=== PATIENT | female | born 1935 | race Caucasian/White ===

== ENCOUNTER 2022-10-26 11:59 | Outpatient (CLI) | payer BC ==
[~2022-10-26] VITALS: Ht 154.9 cm; Wt 74.8 kg
[2022-10-26 13:00] LABS: BASOPHILS # (AUTO) 0.1 X10'3 (0-0.2); EOSINOPHILS # (AUTO) 0.1 X10'3 (0-0.9); EOSINOPHILS % (AUTO) 2.1 % (0-6); HEMATOCRIT 36.5 % (35.0-45.0); LYMPHOCYTES # (AUTO) 1.5 X10'3 (1.1-4.8); LYMPHOCYTES % (AUTO) 22.4 % (21-51); MEAN CORPUSCULAR HEMOGLOBIN 29.2 PG (27.0-31.0); MEAN CORPUSCULAR HGB CONC 32.9 g/dL (33.0-36.5); MEAN PLATELET VOLUME 8.8 FL (7.4-10.4); MONOCYTES # (AUTO) 0.5 X10'3 (0-0.9); MONOCYTES % (AUTO) 7.3 % (2-12); NEUTROPHILS # (AUTO) 4.6 X10'3 (1.8-7.7); NEUTROPHILS % (AUTO) 67.2 % (42-75); PLATELET COUNT 259 X10'3 (140-440); WHITE BLOOD COUNT 6.9 X10'3 (4.5-11.0)
[2022-10-26 13:06] LABS: APTT 31 SECONDS (22-32)
[2022-10-26 13:13] LABS: ALANINE AMINOTRANSFERASE 18 U/L (12-78); ALBUMIN 3.5 G/DL (3.4-5.0); ALBUMIN/GLOBULIN RATIO 0.9 (1.1-1.5); ALKALINE PHOSPHATASE 96 IU/L (46-116); ANION GAP 7 (8-16); ASPARTATE AMINO TRANSFERASE 24 U/L (10-37); BILIRUBIN,TOTAL 0.3 MG/DL (0.1-1.0); BLOOD UREA NITROGEN 30 MG/DL (7-18); BUN/CREATININE RATIO 24.4 (6.6-38.0); CALCIUM 8.8 MG/DL (8.5-10.1); CHLORIDE 100 MMOL/L (99-107); CREATININE 1.23 MG/DL (0.40-0.90); GLUCOSE 169 MG/DL (70-104); POTASSIUM 3.8 MMOL/L (3.5-5.1); SODIUM 139 MMOL/L (135-145); TOTAL CARBON DIOXIDE 32.5 MMOL/L (24-32); TOTAL PROTEIN 7.3 G/DL (6.4-8.2); eGFR 41 ML/MIN
[2022-10-26] MEDS ORDERED: IODIXANOL 320 MG/ML INFUS..BTL 100ML IV ONE (13:18)
[2022-10-26] MEDS ORDERED: albuterol 2.5 MG/3 ML nebule NEB PRN (14:50)
[2022-10-26 14:51] LABS: ABG HCO3 27.8 mmol/L (22.0-26.0); ABG OXYGEN SATURATION 93.5 % (94-97); ABG PCO2 (T) 43.6 mmHg (32.0-45.0); ABG PO2 (T) 69.2 mmHg (75.0-100.0); ALLEN'S TEST POSITIVE; FCOHb 0.5 % (0.0-3.9); FMetHb 0.2 % (0.0-1.5); FO2Hb 92.8 % (94-97)
== END 2022-10-26 23:59 | disposition home or self-care (01) ==
LOC: RAD 11:59
PROVIDERS: ATTEND Internal Medicine Cardiovascular Disease
DX: R94.2 Abnormal results of pulmonary function studies (principal); I35.0 Nonrheumatic aortic (valve) stenosis; R06.02 Shortness of breath; I65.29 Occlusion and stenosis of unspecified carotid artery; I70.0 Atherosclerosis of aorta; R91.1 Solitary pulmonary nodule; K76.89 Other specified diseases of liver; K57.30 Diverticulosis of large intestine without perforation or abscess without bleeding; I70.202 Unspecified atherosclerosis of native arteries of extremities, left leg; I51.7 Cardiomegaly; Z98.890 Other specified postprocedural states
CPT/HCPCS: 36415; 36600; 71046; 71275; 74174; 80053; 82803; 85018; 85025; 85610; 85730; 94060; 94727; 94729; 94760; J3490; Q9967

== ENCOUNTER 2022-11-22 08:28 | Inpatient (IN) | payer BC ==
[2022-11-19 15:53] LABS: BASOPHILS # (AUTO) 0.1 X10'3 (0-0.2); BASOPHILS % (AUTO) 0.9 % (0-1); EOSINOPHILS # (AUTO) 0.1 X10'3 (0-0.9); EOSINOPHILS % (AUTO) 0.7 % (0-6); LYMPHOCYTES # (AUTO) 1.2 X10'3 (1.1-4.8); LYMPHOCYTES % (AUTO) 16.7 % (21-51); MEAN CORPUSCULAR HEMOGLOBIN 29.9 PG (27.0-31.0); MEAN CORPUSCULAR HGB CONC 33.8 g/dL (33.0-36.5); MEAN CORPUSCULAR VOLUME 88.4 FL (78-98); MEAN PLATELET VOLUME 9.3 FL (7.4-10.4); MONOCYTES # (AUTO) 0.5 X10'3 (0-0.9); MONOCYTES % (AUTO) 6.7 % (2-12); NEUTROPHILS # (AUTO) 5.3 X10'3 (1.8-7.7); PRE OP HEMATOCRIT 38.7 % (35.0-45.0); PRE OP HEMOGLOBIN 13.1 g/dL (12.0-16.0); PRE OP PLATELET COUNT 173 X10'3 (140-440); RED BLOOD COUNT 4.37 X10'6 (4.20-5.60)
[2022-11-19 15:54] LABS: CLARITY,URINE CLOUDY (Clear); COLOR,URINE YELLOW (Yellow); GLUCOSE, URINE NEGATIVE (Neg); KETONES,URINE NEGATIVE (Neg); LEUKOCYTE ESTERASE ,URINE SMALL (Neg); NITRITES, URINE POSITIVE (Neg); OCCULT BLOOD,URINE SMALL (Neg); PROTEIN,URINE NEGATIVE (Neg); UROBILINOGEN,URINE 0.2 E.U/dL (0.2-1.0)
[2022-11-19 15:55] LABS: UA COLLECTION TYPE CLN CATCH MIDSTREAM
[2022-11-19 15:58] LABS: PRE OP INR 1.2 INR
[2022-11-19 16:00] LABS: ALKALINE PHOSPHATASE 103 IU/L (46-116); BLOOD UREA NITROGEN 23 MG/DL (7-18); BUN/CREATININE RATIO 18.3 (6.6-38.0); CALCIUM 9.7 MG/DL (8.5-10.1); CHLORIDE 96 MMOL/L (99-107); CREATININE 1.26 MG/DL (0.40-0.90); PRE OP ALT 22 U/L (30-65); PRE OP ANION GAP 9 (8-16); PRE OP AST 24 U/L (10-37); PRE OP BILIRUB, TOTAL 0.6 MG/DL (0.0-1.0); PRE OP GLUCOSE 116 MG/DL (70-104); PRE OP POTASSIUM 3.7 MMOL/L (3.4-5.1); PRE OP SODIUM 136 MMOL/L (135-145); TOTAL CARBON DIOXIDE 30.8 MMOL/L (24-32); eGFR 40 ML/MIN
[2022-11-19 16:17] LABS: SQUAMOUS EPITHELIAL CELL,UR MANY /LPF (FEW)
[2022-11-19 16:18] LABS: BACTERIA,URINE 3+ /HPF (Neg); HYALINE CASTS 0-3 /LPF (NEGATIVE); WBC,URINE 30-50 /HPF (0-4)
[2022-11-19 16:19] LABS: MUCUS STRANDS FEW /LPF (Neg); RBC,URINE 0-2 /HPF (0-2)
[2022-11-22] VITALS (22 sets, daily range): BP systolic 98–155; BP diastolic 50–96
[~2022-11-22] VITALS: Ht 160 cm; Wt 79.6 kg
[~2022-11-22 08:28] MED LIST: APIX5TAB3 PO; ATOR10TA70 PO; BENA1TAB88 PO; BENA40TA90 PO; ESOM40CA54 PO; FELO10TA46 PO; FURO20TA4 PO; LIDOcaine 1%/PF 5ML 10 MG/ML VIAL ONE; POTA-192 PO; aspirin 325mg tablet PO ONE; ceFAZolin inj. 2,000 MG in dextrose 5%-water 100 ML IV ONE; famotidine 20mg tablet PO ONE; nitroPRUSSIDE (NIPRIDE) (200MCG/ML) 100ML Drip IV SCH; ondansetron/PF 4mg/2ml inj IV PRN; phenylephrine inj 50 MG in normal saline 250ml IV solN IV SCH; protamine sulfate 10mg/ml inj. ONE; ringers solution, lacted 1,000 ML IV SCH; vancomycin 1,500 MG in NS 300ml IV soln IV ONE
[2022-11-22] MEDS ORDERED: ondansetron/PF 4mg/2ml inj IV PRN ×2 (10:15→14:05)
[2022-11-22] MEDS ORDERED: proCHLORperazine 10 MG/2 ml inj IV PRN ×2 (10:15→14:05)
[2022-11-22] MEDS ORDERED: morphine 2 MG/ML inj. syringe IV PRN (10:15)
[2022-11-22] MEDS ORDERED: morphine 4 MG/ML inj SYRINge IV PRN (10:15)
[2022-11-22] MEDS ORDERED: meperidine/PF 25mg/ml syringe IV PRN ×2 (10:15)
[2022-11-22] MEDS ORDERED: ringers solution, lacted 1,000 ML IV SCH (10:15)
[2022-11-22] MEDS ORDERED: heparin 1,000 UNITS/NS 500ml 1,500 ML ONE (12:25)
[2022-11-22] MEDS ORDERED: iohexol 350 MG/ML 50ML vial IV ONE ×2 (12:25→13:06)
[2022-11-22] MEDS ORDERED: iohexol 350MG/ML 100ml bottle IV ONE (12:26)
[2022-11-22] MEDS ORDERED: LIDOcaine 1% 30ml preserv. free vial ONE (12:27)
[2022-11-22] MEDS ORDERED: midazolam 1 mg/ML 2ml injection ONE (12:42)
[2022-11-22] MEDS ORDERED: propofol inj 20 ML IV ONE (13:55)
[2022-11-22] MEDS ORDERED: potassium Cl 40MEQ/270ML bag 250 ML IV PRN (14:05)
[2022-11-22] MEDS ORDERED: ALPRAZolam 0.25mg tablet PO PRN (14:05)
[2022-11-22] MEDS ORDERED: magnesium 2GM in 50ml NS 50 ML IV PRN (14:05)
[2022-11-22] MEDS ORDERED: HYDROcodone/acetaminophen 5mg/325mg tablet PO PRN (14:05)
[2022-11-22] MEDS ORDERED: labetalol 20mg/4ml (5mg/ml) syringe IV PRN (14:05)
[2022-11-22] MEDS ORDERED: potassium CL 10mEq/100ml bag 100 ML IV PRN (14:05)
[2022-11-22] MEDS ORDERED: potassium Cl 20mEq/100mL bag 100 ML IV PRN (14:05)
[2022-11-22] MEDS ORDERED: diphenhydrAMINE 25mg capsule PO PRN (14:05)
[2022-11-22] MEDS ORDERED: potassium Cl 40MEQ/1/2NS 520ml 520 ML IV PRN (14:05)
[2022-11-22] MEDS ORDERED: magnesium 4gm in 100ml NS 100 ML IV PRN (14:05)
[2022-11-22] MEDS ORDERED: potassium Cl 20 mEq SR tablet PO PRN (14:05)
[2022-11-22] MEDS ORDERED: pantoprazole 40mg Tablet.DR PO PRN (14:05)
[2022-11-22] MEDS ORDERED: acetaminophen 325mg tablet PO PRN (14:05)
[2022-11-22] MEDS ORDERED: docusate sod 100mg capsule PO PRN (14:05)
--- NOTE | 2022-11-22 14:08 | NUR ---
Received from OR via [facility], accompanied by Anesthesiologist JAROD and report given by Anesthesiolgist. PATIENT WITH PUSH PULLS AND SIGNS SALES REPRESENTATIVE ALL EQUAL WITH LES AND UE'S, TONGUE MIDLINE AND SMILE SYMMETRICAL. GROIN SITES BOTH SOFT AND CDI. PATIENT WITH BLOODY DRAINAGE TO GROIN AND INNER THIGH AREA. CLEANSED UPON ARRIVAL AND ORDER FROM [facility] PLACEMENT RECIEVED PATIENT WRITHING WITH INABILITY TO VOID. CROFT CATHETER PLACED UNDER STERILE CONDITIONS WITH ASSIST OF David WAYNE RN.CLEAR YELLOW URINE PROCEEDED INTO CATHETER. SECURED TO LEFT LEG. PATIENT WITH + DPS TO B LE'S WITH USE OF DOPPLER US. VSS. Addendum: 11/22/22 at 1448 by Ray Chandler RN RN Amended: Links added.
[2022-11-22] MEDS: meperidine/PF 25mg/ml syringe IV PRN ×3 (15:13→16:46)
[2022-11-22] MEDS: ceFAZolin 1GM/D5W- ADD-VANTAGE 50 ML IV SCH ×2 (16:00→23:31)
[2022-11-22] MEDS: sod chloride 0.9% 10ml flush syringe IV SCH ×2 (16:00→23:23)
--- NOTE | 2022-11-22 16:18 | NUR ---
REPORT GIVEN AND ALL QUESTIONS ANSWERED. PATIENT TRANSFERRED TO PCU . LABELED BELONGINGS PRESENT AND DELIVERED TO ROOM. ADELIA DONOHUE PRESENT. ALL CRITERIA FOR TRANSFER BACK TO THE FLOOR HAS BEEN ACHIEVED. VSS. PAIN AT A TOLERABLE LEVEL. BED LOW, CALL LIGHT PRESENT AND 2 RAILS DOWN. RN AWARE THAT PATIENT HAS ARRIVED AND IS PRESENT TO ACCEPT CARE OF PATIENT. VSS AND PATIENT COMFORTABLE. Addendum: 11/22/22 at 1638 by Ray Chandler RN, RN Amended: Links added.
[2022-11-22] MEDS: normal saline 1000ml 1,000 ML IV SCH ×2 (16:45→18:49)
--- NOTE | 2022-11-22 18:17 | NUR ---
hourly groin sites check, no changes. Hourly pedal pulses checked no changes +2
[2022-11-22] MEDS: hydrALAZINE 20mg/ml inj. IV PRN (18:49)
[2022-11-22] MEDS: vancomycin/NS 1 GM ADD-VANTAGE 250 ML IV SCH (19:00)
[2022-11-22] MEDS ORDERED: lisinopril 20mg tablet PO SCH (21:00)
[2022-11-22] MEDS ORDERED: atorvastatin 10mg tablet PO SCH (21:00)
[2022-11-23] VITALS (7 sets, daily range): BP systolic 104–151; BP diastolic 51–58
[2022-11-23] MEDS: hydrALAZINE 20mg/ml inj. IV PRN (03:40)
[2022-11-23 06:14] LABS: BASOPHILS # (AUTO) 0.1 X10'3 (0-0.2); BASOPHILS % (AUTO) 1.2 % (0-1); EOSINOPHILS % (AUTO) 0.4 % (0-6); HEMATOCRIT 32.9 % (35.0-45.0); HEMOGLOBIN 11.1 g/dl (12.0-16.0); LYMPHOCYTES # (AUTO) 0.5 X10'3 (1.1-4.8); LYMPHOCYTES % (AUTO) 7.8 % (21-51); MEAN CORPUSCULAR HEMOGLOBIN 29.5 PG (27.0-31.0); MEAN CORPUSCULAR HGB CONC 33.7 g/dL (33.0-36.5); MEAN CORPUSCULAR VOLUME 87.5 FL (78-98); MEAN PLATELET VOLUME 9.2 FL (7.4-10.4); MONOCYTES # (AUTO) 0.5 X10'3 (0-0.9); MONOCYTES % (AUTO) 7.7 % (2-12); NEUTROPHILS # (AUTO) 4.9 X10'3 (1.8-7.7); NEUTROPHILS % (AUTO) 82.9 % (42-75); PLATELET COUNT 100 X10'3 (140-440); RED BLOOD COUNT 3.76 X10'6 (4.20-5.60); RED CELL DISTRIBUTION WIDTH 13.8 % (11.5-14.5); WHITE BLOOD COUNT 5.9 X10'3 (4.5-11.0)
--- NOTE | 2022-11-23 06:25 | NUR ---
Patient in room PCU 3027. I have received report from [place] DELVALLE and had the opportunity to ask questions and assume patient care. Bedside report completed. Regino esau [facility]. Addendum: 11/23/22 at 0645 by Elizabeth Villafana RN Amended: Links added.
[2022-11-23 06:42] LABS: ANION GAP 9 (8-16); BLOOD UREA NITROGEN 18 MG/DL (7-18); BUN/CREATININE RATIO 19.1 (6.6-38.0); CALCIUM 8.7 MG/DL (8.5-10.1); CHLORIDE 99 MMOL/L (99-107); CREATININE 0.94 MG/DL (0.40-0.90); GLUCOSE 163 MG/DL (70-104); MAGNESIUM 1.3 MG/DL (1.5-2.4); POTASSIUM 3.1 MMOL/L (3.5-5.1); SODIUM 135 MMOL/L (135-145); eGFR 56 ML/MIN
[2022-11-23 06:43] LABS: ALANINE AMINOTRANSFERASE 16 U/L (12-78); ALBUMIN 2.9 G/DL (3.4-5.0); ALBUMIN/GLOBULIN RATIO 0.8 (1.1-1.5); ALKALINE PHOSPHATASE 82 IU/L (46-116); ASPARTATE AMINO TRANSFERASE 28 U/L (10-37); BILIRUBIN,TOTAL 0.6 MG/DL (0.1-1.0); TOTAL PROTEIN 6.4 G/DL (6.4-8.2)
[2022-11-23] MEDS ORDERED: pantoprazole 40mg Tablet.DR PO SCH (07:30)
[2022-11-23] MEDS ORDERED: potassium Cl 20 mEq SR tablet PO SCH (08:00)
[2022-11-23] MEDS ORDERED: furosemide 20MG tablet PO SCH (08:00)
[2022-11-23] MEDS ORDERED: FELODIPINE 10 MG PO SCH (08:00)
[2022-11-23] MEDS: sod chloride 0.9% 10ml flush syringe IV SCH (08:00)
[2022-11-23] MEDS ORDERED: HYDROchlorothiazide 25mg tablet PO SCH (08:00)
[2022-11-23] MEDS: vancomycin/NS 1 GM ADD-VANTAGE 250 ML IV SCH (08:15)
[2022-11-23] MEDS: ceFAZolin 1GM/D5W- ADD-VANTAGE 50 ML IV SCH (08:15)
--- NOTE | 2022-11-23 12:53 | NUR ---
All written and verbal orders for D/C given. All questions answered. Daughter at bedside. Pt stated she had all belongings. Home with daughter. Addendum: 11/23/22 at 1254 by Elizabeth Villafana RN Amended: Links added.
== END 2022-11-23 12:55 | disposition home or self-care (01) | DRG 267 ==
LOC: PAS IN 08:28 → PCU 3S 16:38
PROVIDERS: ADMIT Internal Medicine Cardiovascular Disease; ATTEND Internal Medicine Cardiovascular Disease
PROC: 02RF38Z Replacement of Aortic Valve with Zooplastic Tissue, Percutaneous Approach (ICD-10-PCS; 2022-11-22)
PROC: 047D3ZZ Dilation of Left Common Iliac Artery, Percutaneous Approach (ICD-10-PCS; 2022-11-22)
PROC: B41D1ZZ Fluoroscopy of Aorta and Bilateral Lower Extremity Arteries using Low Osmolar Contrast (ICD-10-PCS; principal; 2022-11-22 12:35)
DX: I35.0 Nonrheumatic aortic (valve) stenosis (principal); Z00.6 Encounter for examination for normal comparison and control in clinical research program; I13.0 Hypertensive heart and chronic kidney disease with heart failure and stage 1 through stage 4 chronic kidney disease, or unspecified chronic kidney disease; I50.32 Chronic diastolic (congestive) heart failure; E78.5 Hyperlipidemia, unspecified; I48.91 Unspecified atrial fibrillation; I73.9 Peripheral vascular disease, unspecified; N18.30 Chronic kidney disease, stage 3 unspecified; Z87.891 Personal history of nicotine dependence
CPT/HCPCS: 33361; 36245; 36415; 37220; 71045; 76937; 80053; 81001; 82948; 83735; 83880; 85025; 85347; 85610; 85730; 86885; 86900; 86901; 86920; 87077; 87081; 87088; 87186; 93005; 93308; A4615; A4618; A6258; A6449; C1725; C1756; C1760; C1769; C1894; G0378; J0360; J0690; J1644; J2175; J2250; J2370; J2704; J2720; J3370; J3490; J7030; J7040; J7050; J7060; J7120; Q9967